=== PATIENT | male | born 1960 | race Caucasian/White ===

== ENCOUNTER 2019-07-31 10:40 | Outpatient (CLI) | payer MEDICARE ==
--- NOTE | 2019-07-31 11:15 | CT ---
CERVICAL SPINE CT WITHOUT CONTRAST: DATE: 07/31/2019. COMPARISON: None. HISTORY: Cervical radiculopathy, pain extending down the left arm. TECHNIQUE: Axial CT imaging at 2 mm intervals from the skull base through the lung apices without contrast. Abel nal and sagittal reformatted imaging obtained. FINDINGS: Severe emphysematous changes are noted in the partially imaged lung apices. Evaluation for central canal and/or neural foraminal stenosis is limited on routine CT. There is moderate degenerative change at the atlantoaxial interspace. The craniocervical junction is intact as is the cervicothoracic junction. There is anterior discectomy and fusion hardware present at C5-6/C6-7. There is mild anterolisthesis of C3 on C4 measuring approximately 3 mm. C2-3: Unremarkable. C3-3-4: Disc space narrowing and posterior disc osteophyte complex noted with at least mild central c anal stenosis. There is significant bilateral facet and uncovertebral osteophyte formation with encroachment on bilateral neural foramina leading to moderate/severe bilateral neural foraminal steno sis, right greater than left. C4-5: There is disc bulge with at least mild central canal stenosis. There is disc space narrowing wi th degenerative endplate change. Bilateral facet and uncovertebral osteophyte formation present, left greater than right. Mild/moderate bilateral neural foraminal stenosis. C5-6: There is disc space narrowing with disc osteophyte complex present. At least mild central canal stenosis. There is significant bilateral facet and uncovertebral osteophyte formation with encroachment on bilateral neural foramina and moderate/severe bilateral neural foraminal stenosis, ri ght greater than left. C6-7: Bilateral facet and uncovertebral osteophyte formation noted with encroachment on bilateral fior ral foramina. Mild left and moderate right neural foraminal stenosis. No osseous cause of significant central canal stenosis. C7-T1: Mild bilateral facet hypertrophy. No osseous cause of significant central canal or neural fora lisa stenosis. Of note, the 2 screws associated with the anterior discectomy and fusion hardware at the C7 level hav e slightly backed away from the plate, right more so than left. No displaced fracture or evidence of dislocation is seen. No worrisome lytic or blastic bone lesion. IMPRESSION: Multilevel postoperative and degenerative change within the cervical spine as detailed above. Transcribed Date/Time: 07/31/2019 11:19 AM
== END 2019-07-31 10:41 | disposition home or self-care (01) ==
LOC: BICCT 10:40
PROVIDERS: ATTEND Neurological Surgery
DX: M47.22 Other spondylosis with radiculopathy, cervical region (principal); Z98.1 Arthrodesis status; Z98.890 Other specified postprocedural states
CPT/HCPCS: 72125